=== PATIENT | male | born 1985 | race Caucasian/White ===

== ENCOUNTER 2016-02-20 19:48 | Emergency (ER) ==
[2016-02-20] MEDS ORDERED: MOTRIN PO ONE (20:03)
[2016-02-20 20:20] LABS: URINE MICRO REVIEW NEEDED? NO; URINE SOURCE CLEAN CATCH
[2016-02-20 20:33] LABS: BILIRUBIN URINE NEGATIVE (NEGATIVE); BLOOD URINE NEGATIVE (NEGATIVE); COLOR YELLOW; GLUCOSE URINE NEGATIVE (NEGATIVE); LEUKOCYTES URINE SMALL (NEGATIVE); NITRITE URINE NEGATIVE (NEGATIVE); PROTEIN URINE NEGATIVE (NEGATIVE); SP GRAVITY URINE 1.007; TURBIDITY URINE CLEAR (CLEAR); UR EPITHELIAL CELLS <10 /HPF (<10); URINE BACTERIA NEGATIVE /HPF; URINE CULTURE NEEDED? YES; URINE RBC <10 /HPF (<10); UROBILINOGEN URINE NORMAL (NORMAL)
[2016-02-20] MEDS ORDERED: ZOFRAN ODT PO ONE (21:49)
[2016-02-20] MEDS ORDERED: ROCEPHIN IM ONE (21:49)
[2016-02-20] MEDS ORDERED: XYLOCAINE-MPF 1% INJ ONE (21:49)
[2016-02-20] MEDS ORDERED: NORCO-7.5 PO ONE (21:49)
--- NOTE | 2016-02-20 22:02 | PROVIDER DOCUMENTATION ---
HPI-Male Problem - General Chief Complaint: Flank Pain Stated Complaint: LT SIDE PAIN Time Seen by Provider: 02/20/16 20:05 Source: patient Allergies/Adverse Reactions: Patient Allergies Allergy/AdvReac Type Severity Reaction Status Date / Time meperidine HCl * AdvReac Unknown Unknown Verified 09/05/14 11:05 [From Demerol] Home Medications: Lansoprazole [Prevacid 24Hr] 15 mg PO DAILY 09/01/14 - History of Present Illness-Male Nature of Presenting Problem: 31 year old M presents to the ED with a cc of right flank pain with an onset of 4 days ago. Pt states that it began spreading to her left flank. PT also c/o dysuria and frequency. PT states fever and body aches today. Location of Complaint: reports: right flank, left flank Radiation: reports: none Quality of Pain: reports: aching Severity in ED: reports: mild Onset/Duration: reports: 4 days ago Timing: reports: still present Context/Activities at Onset: reports: none Urinary Symptoms: reports: no symptoms Review of Systems - Adult - REVIEW OF SYSTEMS - ADULT Constitutional: reports: fever. denies: chills Eyes: reports: no symptoms reported Ears, Nose, Mouth & Throat: reports: no symptoms reported Cardiovascular: reports: no symptoms reported Respiratory: denies: cough, shortness of breath Gastrointestinal: denies: nausea, vomiting Genitourinary: reports: dysuria, frequency, flank pain. 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) - PRIOR SURGERIES/PROCEDURES Surgical/Procedure History: reports: reviewed, not pertinent - PRIOR HOSPITALIZATIONS Prior Hospitalizations: reports: for other non-related - IMMUNIZATION STATUS Childhood Immunizations: See Nurse Assessment Flu Vaccine: See Nurse Assessment - FAMILY HISTORY Family History: reviewed, not pertinent - SOCIAL HISTORY Smoking: non-smoker Substance Use: none/never Alcohol Use Frequency: occasionally Physical Exam-General - PHYSICAL EXAM-ADULT Initial Vital Signs Reviewed: Yes - CONSTITUTIONAL General Appearance: appears well, alert, no apparent distress - RESPIRATORY Respiratory: chest non-tender, lungs clear, normal breath sounds - CARDIOVASCULAR Cardiovascular: normal peripheral pulses, regular rate, rhythm, no edema - GASTROINTESTINAL (ABDOMEN) Abdominal Exam: normal bowel sounds, non tender, soft - MUSCULOSKELETAL Back Exam: CVA tenderness (bilateral) - SKIN Integumentary: diaphoresis - PSYCHIATRIC Psych/Mental Status: normal mood/affect, normal thought content, normal thought process, oriented x 3 Progress - PLAN OF CARE/RESULTS Progress/Plan/Lab Results: plan of care: labs, medications Orders Category Date Time Status UA [UA NIMS W/REFLEX CULT] [URINALYSIS] Stat Lab 02/20/16 20:12 Completed URINE CULTURE [RM] Routine Lab 02/20/16 20:57 Received CefTRIAXONE [Rocephin] Med 02/20/16 21:49 Discontinued 1 gm IM NOW ONE Hydrocodone/APAP 7.5 mg/325 mg [[place]-7.5] Med 02/20/16 21:49 Discontinued 1 each PO NOW ONE Ibuprofen [Motrin] Med 02/20/16 20:03 Discontinued 800 mg PO NOW ONE Lidocaine 1% Pf [Xylocaine-Mpf 1%] Med 02/20/16 21:49 Discontinued 5 ml INJ NOW ONE Ondansetron Odt [Zofran Odt] Med 02/20/16 21:49 Discontinued 8 mg PO NOW ONE Laboratory Tests 02/20/16 20:12 Urine Source CLEAN CATCH Urine Color YELLOW Urine Turbidity CLEAR Urine pH 8.0 Ur Specific [place] 1.007 Urine Protein NEGATIVE Ur Glucose (Stick) NEGATIVE Ur Ketones (Stick) NEGATIVE Urine Blood NEGATIVE Urine Nitrite NEGATIVE Urine Bilirubin NEGATIVE Urobilinogen Dipstick NORMAL Urine Leukocytes SMALL A Urine WBC (Auto) 10-20 A Urine RBC (Auto) <10 U Epithel Cells (Auto) <10 Urine Bacteria (Auto) NEGATIVE Vital Signs - 24 hr 02/20/16 20:02 Temperature 102.9 F H Pulse Rate 92 H Respiratory 14 Rate Blood Pressure 125/68 O2 Sat by Pulse 99 Oximetry Pt given results and will be d/c home w/ rx to follow up with PCP. Pt verbally understood instructions. PT remained clinically stable throughout the course of the ED stay and will return if symptoms worsen. Departure - Departure Time of Disposition Order: 21:58 DIAGNOSIS: Pyelonephritis Disposition: HOME 01 Certified Medical Emergency: Emergent Condition: Good Additional Instructions: Follow up with primary care doctor. Return to ED for any new or worsening symptoms. Establish care with a primary physician by calling the physician referral line below. ED Follow Up Instructions: You have been treated by a care provider in the Emergency Department. These instructions are being provided to you so you can have an understanding of how to care for yourself upon discharge. Upon discharge from the Emergency Department, you are responsible for making arrangements for follow-up care by a physician of your choice. Take all prescribed medications as directed. Return to the Emergency Department immediately for any new or worsening symptoms. You may call the Physician Referral phone number at [phone] to obtain a list of Physicians who are taking new patients. Prescriptions: Cephalexin [Keflex] 500 mg PO TID #30 capsule Ibuprofen [Motrin] 800 mg PO Q8H PRN PRN #30 tablet PRN Reason: Pain Hydrocodone/Acetaminophen [[place] 7.5-325 Tablet] 1 each PO Q4-6H PRN PRN #10 tablet PRN Reason: Pain Ondansetron [Zofran Odt] 8 mg PO Q8H PRN #20 tab.rapdis Attestation - Scribe Verification/Attestation Scribe:: Alexandria Wang Acting as Scribe for:: Mendez Hermosillo Scribe documention review:: This chart was documented by a scribe and accurately reflects the service the provider performed and the decisions made by the provider. Physician Attestation - Physician Attestation I, the provider, attest to the following statement:: Mendez Hermosillo Physician documentation Attestation:: This documentation recorded by the scribe accurately reflects the service I personally performed and the decisions made by me.
[2016-02-20 22:17] VITALS: BP 103/53
== END 2016-02-20 22:30 | disposition home or self-care (01) ==
LOC: ED 19:48
DX: N12 Tubulo-interstitial nephritis, not specified as acute or chronic (principal); R10.9 Unspecified abdominal pain; R30.0 Dysuria; R35.0 Frequency of micturition; R50.9 Fever, unspecified; R52 Pain, unspecified; K22.70 Barrett's esophagus without dysplasia
CPT/HCPCS: 81001; 87077; 87088; 96372; J0696; S0181